=== PATIENT | male | born 1965 | race Caucasian/White ===

== ENCOUNTER → 2017-12-21 | Outpatient (CLI) | payer OTHER, BC ==
[~2017-12-21] MED LIST: AMBIEN 10MG10 MG PO; ATENOLOL25 MG PO; ATIVAN0.5 MG PO; CARDIZEM CD 24240 MG PO; DILTIAZEM120 MG PO; ECOTRIN325 MG PO; FLECAINIDE ACE100 MG PO; HCTZ 25MG25 MG PO; LEXAPRO10 MG PO; MULTIPLE VITAMI1 CAP PO; ONE DAILY1 TA1 PO; PREDNISONE1 MG PO; PRINIVIL20 MG PO; TOPROL XL50 MG PO; XANAX0.5 MG PO; ZOLOFT50 MG PO; [UNRECOGNIZED DRUG - OTHER] PO
== END ==
LOC: COL.RAD 16:26
DX: J34.89 Other specified disorders of nose and nasal sinuses (principal); S09.90XS Unspecified injury of head, sequela